=== PATIENT | male | born 1995 | race African-American/Black ===

== ENCOUNTER 2018-03-31 17:59 | Emergency (ER) | payer SELFPAY ==
[2018-03-31 18:17] VITALS: BP 139/67
--- NOTE | 2018-03-31 18:24 | RADIOLOGY REPORT (SQ) ---
EXAM DESCRIPTION: HAND RIGHT 3 VIEWS COMPLETED DATE/TIME: 03/31/2018 6:12 pm REASON FOR STUDY: hand pain after slamming onto a counter top COMPARISON: None. EXAM PARAMETERS: NUMBER OF VIEWS: Three views. TECHNIQUE: AP, lateral and oblique radiographic images acquired of the right hand. LIMITATIONS: None. FINDINGS: MINERALIZATION: Normal. BONES: There is a minimally angulated and impacted transverse fracture of the base of the right 4th m etacarpal. JOINTS: No effusions. SOFT TISSUES: No soft tissue swelling. No foreign body. OTHER: No other significant finding. IMPRESSION: There is a minimally angulated and impacted transverse fracture of the base of the right 4th metacarpal. TECHNICAL DOCUMENTATION: JOB ID: [id number] [employer]- All Rights Reserved Reading location - IP/workstation name: [email or web address]
[2018-03-31] MEDS ORDERED: ACETAMINOPHEN 325 MG TABLET PO ONE (21:32)
[2018-03-31] MEDS ORDERED: OXYCODONE-ACETAMINOPHEN 5-325 MG TABLET PO ONE (22:02)
--- NOTE | 2018-03-31 23:14 | ER Document Report ---
ED Hand/Wrist Injury - General Chief Complaint: Hand Pain Stated Complaint: HAND PAIN Time Seen by Provider: 03/31/18 21:43 Mode of Arrival: Ambulatory Information source: Patient Notes: Patient is a 22-year-old male comes emergency room complaining of right hand pain. Patient states that he was very upset with somebody tonight and he was more upset that he decided he had to hit something and when he did use his right hand and drove it with a tight fist into the top of a step. Stepped happened to be wooden. Patient complains of right hand pain more on the top of the hand than anywhere else. And it is swollen and tender. Patient denies any other medical problems. No other injuries were sustained. - HPI Injury to: Hand Onset: Just prior to arrival Where: Home Timing: Constant Quality of pain: Sharp, Throbbing Severity: Moderate Pain Level: 3 Context: Blow - Related Data Allergies/Adverse Reactions: No Known Allergies Allergy (Unverified 03/31/18 18:01) Past Medical History - General Information source: Patient - Social History Smoking Status: Current Every Day Smoker Cigarette use (# per day): Yes - Occasional Chew tobacco use (# tins/day): No Smoking Education Provided: Yes Frequency of alcohol use: Occasional Drug Abuse: None Lives with: Family Family History: Reviewed & Not Pertinent Patient has suicidal ideation: No Patient has homicidal ideation: No Renal/ Medical History: Denies: Hx Peritoneal Dialysis Review of Systems - Review of Systems Constitutional: No symptoms reported EENT: No symptoms reported Cardiovascular: No symptoms reported Respiratory: No symptoms reported Gastrointestinal: No symptoms reported Genitourinary: No symptoms reported Male Genitourinary: No symptoms reported Musculoskeletal: Joint pain, Joint swelling, Muscle pain Skin: See HPI, Other - Abrasion Hematologic/Lymphatic: No symptoms reported Neurological/Psychological: No symptoms reported -: Yes All other systems reviewed and negative Physical Exam - Vital signs Vitals: Temp Pulse Resp BP Pulse Ox 98.8 F 67 16 139/67 H 97 03/31/18 18:14 03/31/18 18:14 03/31/18 18:14 03/31/18 18:14 03/31/18 18:14 Interpretation: Hypertensive - Notes Notes: PHYSICAL EXAMINATION: GENERAL: Well-appearing, well-nourished and in no acute distress. Uncomfortable appearing HEAD: Atraumatic, normocephalic. EYES: Pupils equal round and reactive to light, extraocular movements intact, sclera anicteric, conjunctiva are normal. ENT: Nares patent, oropharynx clear without exudates. Moist mucous membranes. NECK: Normal range of motion, supple without lymphadenopathy LUNGS: Breath sounds clear to auscultation bilaterally and equal. No wheezes rales or rhonchi. Heart has regular rate and rhythm without murmur. Musculoskeletal: Examination patient's area of concern is his right hand. There is moderate amount of swelling on the dorsum of the hand. Most of the tenderness is along the fourth metacarpal area. 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 Patient has good cap refill in the nailbeds of the right hand and fingernails. He has good opposition. The tenderness is again along the fourth metacarpal area and there is an abrasion on the fourth knuckle of the metacarpal. NEUROLOGICAL: Cranial nerves grossly intact. Normal speech, normal gait. Normal sensory, motor exams PSYCH: Normal mood, normal affect. SKIN: Warm, Dry, there is also noted a small abrasion on the fourth distal carpal arch/knuckle of the right hand. Course - Re-evaluation Re-evalutation: 04/01/18 01:24 Patient felt embarrassed that he got so aggravated that he had a had a step but stated that he would do it again to avoid him from getting up person. He states he is never do anything like this before it is minimally displaced and impacted kind of so he will need a referral to orthopedist. I have given him the name of Dr. Rachel who is the orthopedist injection molding process technician and he contact his office tomorrow to see when they can see him. - Vital Signs Vital signs: Temp Pulse Resp BP Pulse Ox 98.8 F 67 16 139/67 H 97 03/31/18 18:14 03/31/18 18:14 03/31/18 18:14 03/31/18 18:14 03/31/18 18:14 Procedures - Immobilization Right Hand 4th digit Time completed: 23:10 Pre-Proc Neuro Vasc Exam: Normal Immobilizer type: Other - Ulnar gutter Performed by: PCT Post-Proc Neuro Vasc Exam: Normal Alignment checked and good: Yes Discharge - Discharge Clinical Impression: Metacarpal bone fracture Qualifiers: Encounter type: initial encounter Metacarpal bone: fourth Fracture type: closed Metacarpal location: shaft Fracture alignment: displaced Laterality: right Qualified Code(s): S62.324A - Displaced fracture of shaft of fourth metacarpal bone, right hand, initial encounter for closed fracture Condition: Stable Disposition: HOME, SELF-CARE Instructions: Fractured Metacarpal ([facility]) Additional Instructions: Use the splint for the next 4-5 days or until you follow-up with orthopedist. As I indicated to you have a fracture at the base of the fourth finger and on the hand. This is something of probably needs to be seen by orthopedist and possibly have surgical intervention then again I am not an orthopedist so it needs to be seen by 1 to know what intervention is needed. I am giving you something for pain medication ice down 3 times a day through the splint by applying a garbage bag over top of it. I can send you back to work on light duty no use of the right hand and at that point you can decide which way to go by the orthopedic intervention. You can go see your own orthopedist if you have 1. Should you have any concerns or problems can always return to ER for recheck. Also you may take ibuprofen 800 mg 3 times a day with food which helps with inflammation on the local area. I am giving a little bit of narcotic pain medication due to through a couple of days until the pain can start to subside but there is nothing I can do to make the pain go all the way. Should you need to be seen for reevaluation would be more than happy to. Prescriptions: Oxycodone HCl/Acetaminophen [Percocet 5-325 mg Tablet] 1 tab PO Q4H PRN #15 tablet PRN Reason: Forms: Special Work Note Referrals: LIVAN MORFIN MD [Primary Care Provider] - Follow up as needed CANDIDA RACHEL DO [ACTIVE STAFF] - Follow up as needed
== END 2018-03-31 23:20 | disposition home or self-care (01) ==
LOC: ER 17:59
DX: S62.324A Displaced fracture of shaft of fourth metacarpal bone, right hand, initial encounter for closed fracture (principal); M79.641 Pain in right hand; F17.200 Nicotine dependence, unspecified, uncomplicated; W22.09XA Striking against other stationary object, initial encounter; Y92.009 Unspecified place in unspecified non-institutional (private) residence as the place of occurrence of the external cause
CPT/HCPCS: 99283